=== PATIENT | female | born 1975 | race Caucasian/White ===

== ENCOUNTER → 2016-05-08 | Outpatient (CLI) | payer OTHER ==
--- NOTE | 2016-05-09 08:36 | KCIC ---
Bilateral digital screening mammograms with CAD: HISTORY Routine screening COMPARISON Baseline exam. FINDINGS Breast density category C. The skin and nipples show no abnormalities. No abnormal lymph nodes are seen in the axilla. The breast parenchyma shows heterogeneous density. There are small parenchymal densities seen bilaterally. Further evaluation with cone compression views and ultrasound is recommended. There are no suspicious calcifications. IMPRESSION Small parenchymal densities seen bilaterally. Recommend further evaluation with additional views and ultrasound. This study was interpreted with the benefit of Computerized Aided Detection (CAD). Mammography is not 100% sensitive in detecting breast cancer. Therefore, a self breast exam and a clinical breast exam are very important. A negative mammogram does not negate a clinically suspicious finding and should not result in a delay in biopsying a clinically suspicious abnormality. BI-RADS category 0: Incomplete. Additional imaging is recommended. This patient's information has been entered into a reminder system for the patient to be notified with the results of this examination and a target date for her next mammograms. Electronically signed by: Cheyanne Peralta MD (May 09, 2016 08:33:13)
== END | disposition home or self-care (01) ==
LOC: KCIC MAMMO 12:20
PROVIDERS: ATTEND Family Medicine
DX: Z12.31 Encounter for screening mammogram for malignant neoplasm of breast (principal)
CPT/HCPCS: 77052; G0202; 77067

== ENCOUNTER → 2016-05-15 | Outpatient (CLI) | payer OTHER ==
--- NOTE | 2016-05-16 13:57 | KCIC ---
DATE: 05/15/2016 EXAM: DIGITAL DIAGNOSTIC BILATERAL HISTORY: Possible abnormality seen on screening COMPARISON: Screening examination one week earlier This study was interpreted with the benefit of Computerized Aided Detection (CAD). FINDINGS: The breast parenchyma unchanged relative to the screening exam. Additional views of the breasts were obtained. Rolled cc views of the breast and ML views of both breasts were obtained. On the additional views no dominant mass is seen. The findings on screening probably reflects summation artifact. A screening ultrasound examination of the breasts was performed. A definite mass or abnormality on screening is not seen. IMPRESSION: Probable benign findings. Follow-up conventional mammography in 6 months advised of both breasts BI-RADS CATEGORY: 3 PROBABLE BENIGN FINDING(S-SHORT INTERVAL FOLLOW-UP SUGGESTED RECOMMENDED FOLLOW-UP: 6M 6 MONTH FOLLOW-UP PQRS compliance statement: Patient information was entered into a reminder system with a target due date November 02, 2016 for the next mammogram. Mammography is a sensitive method for finding small breast cancers, but it does not detect them all and is not a substitute for careful clinical examination. A negative mammogram does not negate a clinically suspicious finding and should not result in delay in biopsying a clinically suspicious abnormality. "Our facility is accredited by the [employer] Mammography [employer]." MTDD
== END | disposition home or self-care (01) ==
LOC: KCIC MAMMO 12:59
PROVIDERS: ATTEND Family Medicine
DX: R92.8 Other abnormal and inconclusive findings on diagnostic imaging of breast (principal)
CPT/HCPCS: 76641; G0204; 77051

== ENCOUNTER → 2017-03-06 | Outpatient (CLI) | payer OTHER ==
--- NOTE | 2017-03-06 12:39 | KCIC ---
DATE: March 06, 2017 EXAM: MAMMO BANDAR DIAG BILAT HISTORY: Follow-up of bilateral nodular densities. COMPARISON: May 15, 2016. This study was interpreted with the benefit of Computerized Aided Detection (CAD). 2-D digital mammographic views of both breasts were performed in the CC and MLO projections. 3-D digital tomosynthesis of both breasts were performed in the CC and MLO projections and reviewed on a computer workstation. FINDINGS: The breast parenchyma is scattered and mildly dense. Nodular breast parenchyma is stable. There are no dominant suspicious masses, suspicious microcalcifications or evidence of architectural distortion. IMPRESSION: No mammographic indicators for malignancy. BI-RADS CATEGORY: 2 BENIGN FINDING RECOMMENDED FOLLOW-UP: 12M 12 MONTH FOLLOW-UP PQRS compliance statement: Patient information was entered into a reminder system with a target due date March 07, 2018 for the next mammogram. Mammography is a sensitive method for finding small breast cancers, but it does not detect them all and is not a substitute for careful clinical examination. A negative mammogram does not negate a clinically suspicious finding and should not result in delay in biopsying a clinically suspicious abnormality. "Our facility is accredited by the [employer] Mammography [employer]." The patient's breast density may affect the ability of mammography to detect breast cancer. There are 4 categories of breast density, A, B, C and D. Breast density A means that most of the breast tissue is replaced with adipose tissue and therefore is not dense. Breast density B means that the breast tissue is mildly dense and scattered. Breast density C means that the breast tissue is heterogeneously dense. Breast density D means that the breast tissue is very dense. Breast densities especially C and D may decrease the sensitivity of mammography to detect breast cancer. Therefore, the patient may benefit from 3-D breast mammography (3D breast tomography) as a part of their screening mammogram. Insurance may or may not pay for this additional imaging. The patient's breast density based on today's mammogram is category B.
== END | disposition home or self-care (01) ==
LOC: KCIC MAMMO 10:44
PROVIDERS: ATTEND Family Medicine
DX: R92.8 Other abnormal and inconclusive findings on diagnostic imaging of breast (principal)
CPT/HCPCS: G0204; G0279; 77062; 77066

== ENCOUNTER → 2018-11-12 | Outpatient (CLI) | payer OTHER ==
--- NOTE | 2018-11-12 17:35 | KCIC ---
BILATERAL SCREENING MAMMOGRAM, 3-D History: Routine screening. Comparison: Bilateral mammogram May 08, 2016. Technique: MLO and CC digital tomosynthesis (3D) images obtained. Radiologist reviewed these images on dedicated workstation. Findings: Breast Tissue Density C : The breasts are heterogeneously dense, which may obscure small masses. Benign calcifications left breast redemonstrated. There are no dominant masses, suspicious microcalcifications, or architectural distortion. IMPRESSION: No mammographic evidence of malignancy. Recommend routine screening. BI-RADS category 2: Benign findings. The images were reviewed with computer-aided detection. Patient information is entered into reminder system with a target due date for the next screening mammogram. Mammography is the most sensitive method for finding small breast cancers, but it does not detect them all and is not a substitute for careful clinical examination. A negative mammogram does not negate a clinically suspicious finding and should not result in delay in biopsying a clinically suspicious abnormality. "Our facility is accredited by the [employer] Mammography [employer]." Electronically signed by: Matt Hoff MD (11/12/2018 5:32 PM) [facility]
== END | disposition home or self-care (01) ==
LOC: KCIC MAMMO 13:54
PROVIDERS: ATTEND Family Medicine
DX: Z12.31 Encounter for screening mammogram for malignant neoplasm of breast (principal); N64.89 Other specified disorders of breast
CPT/HCPCS: 77063; 77067

== ENCOUNTER 2019-02-07 10:43 | Emergency (ER) | payer OTHER ==
[~2019-02-07] VITALS: Ht 167.6 cm; Wt 61.2 kg
[~2019-02-07 10:43] MED LIST: ASPIRIN CHEWABLE 81 MG TABLET. PO ONE
--- NOTE | 2019-02-07 10:54 | PHYS DOC ---
Adult General Chief Complaint Chief Complaint: CHEST PAIN HPI HPI 44-year-old female presents to the emergency department with complaints of chest pain, irregular heart rate, palpitations, shortness of breath, nausea. Patient with no past medical history. LMP currently. Patient states they did go out last night for her birthday to a concert, she states she had 4 drinks which is not normal for her. Her last large amount of alcohol intake was approximately 10 years ago. Nothing makes her symptoms worse, nothing makes her symptoms better. Review of Systems Review of Systems Constitutional: Denies fever or chills [] Respiratory: Shortness of breath Cardiovascular: No additional information not addressed in HPI [] GI: Nausea with vomiting : Denies dysuria or hematuria [] Neurologic: Denies headache, focal weakness or sensory changes [] All other systems were reviewed and found to be within normal limits, except as documented in this note. Current Medications Current Medications Current Medications Medications (Trade) Dose Ordered Sig/Diego Start Time Stop Time Status Last Admin Dose Admin Aspirin (Children'S Aspirin) 324 mg 1X ONCE 02/07/19 10:30 02/07/19 11:08 DC 02/07/19 11:15 324 MG Heparin Sodium (Porcine) (Heparin Sodium) 1,550 unit PRN Q6HRS PRN 02/07/19 11:55 Heparin Sodium/ Dextrose 500 ml @ 0 mls/hr CONT PRN 02/07/19 12:00 Nitroglycerin (Nitrostat) 0.4 mg PRN Q5MIN PRN 02/07/19 11:30 02/08/19 11:29 Ondansetron HCl (Zofran) 4 mg 1X ONCE 02/07/19 11:30 02/07/19 11:31 DC 02/07/19 11:15 4 MG Sodium Chloride 1,000 ml @ 1,000 mls/hr 1X ONCE 02/07/19 11:30 02/07/19 12:29 02/07/19 11:15 1,000 MLS/HR Allergies Allergies Allergies Coded Allergies Type Severity Reaction Last Updated Verified No Known Drug Allergies 02/07/19 No Physical Exam Physical Exam Constitutional: Well developed, well nourished, mild distress, nontoxic appearing HENT: Normocephalic, atraumatic, bilateral external ears normal, oropharynx moist, no oral exudates, nose normal. [] Eyes: PERRLA, EOMI, conjunctiva normal, no discharge. [] Cardiovascular: Irregular irregular rhythm Lungs & Thorax: Bilateral breath sounds clear to auscultation [] Abdomen: Bowel sounds normal, soft, no tenderness, no masses, no pulsatile masses. [] Skin: Warm, dry, no erythema, no rash. [] Extremities: No tenderness, no edema. [] Neurologic: Alert and oriented X 3, no focal deficits noted. [] Psychologic: Affect normal, judgement normal, mood normal. [] Current Patient Data Vital Signs Vital Signs Date Time Temp Pulse Resp B/P (MAP) Pulse Ox O2 Delivery O2 Flow Rate FiO2 02/07/19 10:49 97.4 108 16 154/102 (119) 100 Room Air 97.4 Lab Values Laboratory Tests Test 02/07/19 10:55 White Blood Count 8.6 x10^3/uL (4.0-11.0) Red Blood Count 5.06 x10^6/uL (3.50-5.40) Hemoglobin 15.2 g/dL (12.0-15.5) Hematocrit 44.6 % (36.0-47.0) Mean Corpuscular Volume 88 fL (79-100) Mean Corpuscular Hemoglobin 30 pg (25-35) Mean Corpuscular Hemoglobin Concent 34 g/dL (31-37) Red Cell Distribution Width 13.7 % (11.5-14.5) Platelet Count 279 x10^3/uL (140-400) Neutrophils (%) (Auto) 80 % (31-73) H Lymphocytes (%) (Auto) 14 % (24-48) L Monocytes (%) (Auto) 4 % (0-9) Eosinophils (%) (Auto) 1 % (0-3) Basophils (%) (Auto) 1 % (0-3) Neutrophils # (Auto) 6.8 x10^3/uL (1.8-7.7) Lymphocytes # (Auto) 1.2 x10^3/uL (1.0-4.8) Monocytes # (Auto) 0.4 x10^3/uL (0.0-1.1) Eosinophils # (Auto) 0.1 x10^3/uL (0.0-0.7) Basophils # (Auto) 0.0 x10^3/uL (0.0-0.2) D-Dimer (Dixie) < 0.27 ug/mlFEU Sodium Level 145 mmol/L (136-145) Potassium Level 3.5 mmol/L (3.5-5.1) Chloride Level 105 mmol/L (98-107) Carbon Dioxide Level 24 mmol/L (21-32) Anion Gap 16 (6-14) H Blood Urea Nitrogen 11 mg/dL (7-20) Creatinine 0.7 mg/dL (0.6-1.0) Estimated GFR (Cockcroft-Gault) 90.5 BUN/Creatinine Ratio 16 (6-20) Glucose Level 108 mg/dL (70-99) H Calcium Level 9.6 mg/dL (8.5-10.1) Total Bilirubin 0.5 mg/dL (0.2-1.0) Aspartate Amino Transferase (AST) 21 U/L (15-37) Alanine Aminotransferase (ALT) 22 U/L (14-59) Alkaline Phosphatase 55 U/L (46-116) Troponin I Quantitative < 0.017 ng/mL (0.000-0.055) IC-Ocd-A-Type Natriuretic Peptide 55 pg/mL (0-124) Total Protein 8.6 g/dL (6.4-8.2) H Albumin 4.9 g/dL (3.4-5.0) Albumin/Globulin Ratio 1.3 (1.0-1.7) Thyroid Stimulating Hormone (TSH) 0.936 uIU/mL (0.358-3.74) Laboratory Tests 02/07/19 10:55 Laboratory Tests 02/07/19 10:55 EKG EKG EKG reviewed, irregularly irregular rhythm, heart rate 114.[] EKG 1213 reveals normal sinus rhythm Interpretation Time: Interpretation time 1053 Radiology/Procedures Radiology/Procedures [facility] [address] [place], [place] [id number] IMAGING REPORT Signed PATIENT: DARLENE FERNANDEZ ACCOUNT: [id number] : 1975 LOCATION: ER AGE: 44 SEX: F EXAM STATUS: REG ER ORD. PHYSICIAN: RUSSELL OROZCO MD REASON: chest pain PROCEDURE: PORTABLE CHEST 1V PORTABLE CHEST 1V INDICATION: Chest pain. COMPARISON STUDY: None. FINDINGS: Lungs: Normal lung volume. No pulmonary mass or consolidation. The tracheobronchial tree and hilar structures are normal. Pleura: No pleural effusion or pneumothorax. Heart and Mediastinum: The cardiomediastinal silhouette is normal. The great vessels of the thorax are normal. IMPRESSION: No acute cardiopulmonary process. Electronically signed by: Tato Rivers MD (02/07/2019 11:47 AM) [facility] DICTATED and SIGNED BY: TATO RIVERS MD DATE: 02/07/19 1147 [] Course & Med Decision Making Course & Med Decision Making Pertinent Labs and Imaging studies reviewed. (See chart for details) []44-year-old female presents to the emergency department with complaints of chest pain, irregular heart rate, palpitations, shortness of breath, nausea. Patient with no past medical history. LMP currently. Patient states they did go out last night for her birthday to a concert, she states she had 4 drinks which is not normal for her. Her last large amount of alcohol intake was approximately 10 years ago. Nothing makes her symptoms worse, nothing makes her symptoms better. Labs reviewed, TSH within normal limits, troponin normal, EKG still reveals irregular irregular rhythm, intermittent atrial flutter. CHADsVasc2 score 1 (low risk) - discussed initiating heparin drip in the ER. Heparin drip with bolus initiated in ER however during this time, patient converted to NSR Discussed with Dr. Reyes - will follow up as outpatient Discussed with patient, call for appointment time on Saturday Discussed return precautions Dragon Disclaimer Dragon Disclaimer This electronic medical record was generated, in whole or in part, using a voice recognition dictation system. Departure Departure Impression: Primary Impression: Chest pain Additional Impression: Arrhythmia Referrals: KARLOS AGUILAR MD (PCP) DENVER REYES MD Patient Instructions: Cardiac Arrhythmia Additional Instructions: Recommend follow up with PCP 3 - 5 days Return to the ER with worsening symptoms, intractable pain, fever, altered mental status Tylenol/Motrin as needed for pain Converted to normal sinus rhythm in ER TSH, cardiac enzymes negative Call cardiology office on Saturday for follow up appointment Problem Qualifiers Primary Impression: Chest pain Chest pain type: unspecified Qualified Codes: R07.9 - Chest pain, unspecified RUSSELL OROZCO MD Feb 07, 2019 10:54
[2019-02-07 11:13] LABS: BASO % 1 % (0-3); EOS # 0.1 x10^3/uL (0.0-0.7); EOS % 1 % (0-3); HEMATOCRIT 44.6 % (36.0-47.0); HEMOGLOBIN 15.2 g/dL (12.0-15.5); LYMPH # 1.2 x10^3/uL (1.0-4.8); LYMPH % 14 % (24-48); MEAN CORPUSCULAR HEMOGLOBIN 30 pg (25-35); MEAN CORPUSCULAR HGB CONC 34 g/dL (31-37); MEAN CORPUSCULAR VOLUME 88 fL (79-100); MONO # 0.4 x10^3/uL (0.0-1.1); MONO % 4 % (0-9); NEUT # 6.8 x10^3/uL (1.8-7.7); NEUT % 80 % (31-73); PLATELET COUNT 279 x10^3/uL (140-400); RED BLOOD COUNT 5.06 x10^6/uL (3.50-5.40); RED CELL DISTRIBUTION WIDTH 13.7 % (11.5-14.5); WHITE BLOOD COUNT 8.6 x10^3/uL (4.0-11.0)
[2019-02-07 11:24] LABS: CALCIUM 9.6 mg/dL (8.5-10.1); CREATININE 0.7 mg/dL (0.6-1.0); GFR 90.5; POTASSIUM 3.5 mmol/L (3.5-5.1)
[2019-02-07 11:30] LABS: ALBUMIN 4.9 g/dL (3.4-5.0); ALBUMIN/GLOBULIN RATIO 1.3 (1.0-1.7); TOTAL BILIRUBIN 0.5 mg/dL (0.2-1.0); TOTAL PROTEIN 8.6 g/dL (6.4-8.2)
[2019-02-07] MEDS ORDERED: IV NORMAL SALINE 1000ML BAG 1,000 ML IV ONE (11:30)
[2019-02-07] MEDS ORDERED: NITROGLYCERIN SUBLINGUAL 0.4 MG BOTTLE OF 25. SL PRN (11:30)
[2019-02-07] MEDS ORDERED: ONDANSETRON PF 4 MG/2 ML VIAL. IV ONE (11:30)
--- NOTE | 2019-02-07 11:50 | RAD ---
PORTABLE CHEST 1V INDICATION: Chest pain. COMPARISON STUDY: None. FINDINGS: Lungs: Normal lung volume. No pulmonary mass or consolidation. The tracheobronchial tree and hilar structures are normal. Pleura: No pleural effusion or pneumothorax. Heart and Mediastinum: The cardiomediastinal silhouette is normal. The great vessels of the thorax are normal. IMPRESSION: No acute cardiopulmonary process. Electronically signed by: Deepak Rivers MD (02/07/2019 11:47 AM) [facility]
[2019-02-07] MEDS ORDERED: HEPARIN for IV BOLUS 10,000 UNIT/10 ML VIAL. IV PRN (11:55)
[2019-02-07] MEDS ORDERED: HEPARIN 25,000UTS/500ML PREMIX 500 ML IV PRN (12:00)
[2019-02-07] MEDS ORDERED: HEPARIN for IV BOLUS 10,000 UNIT/10 ML VIAL. IV ONE (12:00)
--- NOTE | 2019-02-07 12:23 | PDOC1 ---
History and Physical Date of Admission Date of Admission DATE: 02/07/19 TIME: 12:23 Identification/Chief Complaint Chief Complaint seen in er with new onset a-fib after drinking last night 4 drinks Past Medical History Cardiovascular: No pertinent hx Heme/Onc: No pertinent hx Hepatobiliary: No pertinent hx Psych: No pertinent hx Infectious disease: No pertinent hx Renal/: No pertinent hx Family History Family History: Other Social History Smoke: No ALCOHOL: social Drugs: None Current Problem List Problem List Problems Medical Problems: (1) Chest pain Status: Acute Current Medications Current Medications Current Medications Aspirin (Children'S Aspirin) 324 mg 1X ONCE PO Last administered on 02/07/19at 11:15; Start 02/07/19 at 10:30; Stop 02/07/19 at 11:08; Status DC Nitroglycerin (Nitrostat) 0.4 mg PRN Q5MIN PRN SL CP RATING > 1/10; Start 02/07/19 at 11:30; Stop 02/08/19 at 11:29 Ondansetron HCl (Zofran) 4 mg 1X ONCE IV Last administered on 02/07/19at 11:15; Start 02/07/19 at 11:30; Stop 02/07/19 at 11:31; Status DC Sodium Chloride 1,000 ml @ 1,000 mls/hr 1X ONCE IV Last administered on 02/07/19at 11:15; Start 02/07/19 at 11:30; Stop 02/07/19 at 12:29 Heparin Sodium (Porcine) (Heparin Sodium) 3,650 unit 1X ONCE IV ; Start 02/07/19 at 12:00; Stop 02/07/19 at 12:01; Status DC Heparin Sodium/ Dextrose 500 ml @ 0 mls/hr CONT PRN IV PER PROTOCOL; Start 02/07/19 at 12:00 Heparin Sodium (Porcine) (Heparin Sodium) 1,550 unit PRN Q6HRS PRN IV FOR UFH LEVEL LESS THAN 0.2; Start 02/07/19 at 11:55 Allergies Allergies: Coded Allergies: No Known Drug Allergies (Unverified , 02/07/19) ROS General: No: Chills, Night Sweats, Fatigue, Malaise, Appetite, Other PSYCHOLOGICAL ROS: No: Anxiety, Behavioral Disorder, Concentration difficultie, Decreased libido, Depression, Disorientation, Hallucinations, Hostility, Irritablity, Memory difficulties, Mood Swings, Obsessive thoughts, Physical abuse, Sexual abuse, Sleep disturbances, Suicidal ideation, Other Eyes: No Blurry vision, No Decreased vision, No Double vision, No Dry eyes, No Excessive tearing, No Eye Pain, No Itchy Eyes, No Loss of vision, No Photophobia, No Scotomata, No Uses contacts, No Uses glasses, No Other HEENT: No: Heacaches, Visual Changes, Hearing change, Nasal congestion, Nasal discharge, Oral lesions, Sinus pain, Sore Throat, Epistaxis, Sneezing, Snoring, Tinnitus, Vertigo, Vocal changes, Other ALLERGY AND IMMUNOLOGY: No: Hives, Insect Bite Sensitivity, Itchy/Watery Eyes, Nasal Congestion, Post Nasal Drip, Seasonal Allergies, Other Hematological and Lymphatic: No: Bleeding Problems, Blood Clots, Blood Transfusions, Brusing, Night Sweats, Pallor, Swollen Lymph Nodes, Other ENDOCRINE: No: Breast Changes, Galactorrhea, Hair Pattern Changes, Hot Flashes, Malaise/lethargy, Mood Swings, Palpitations, Polydipsia/polyuria, Skin Changes, Temperature Intolerance, Unexpected Weight Changes, Other Respiratory: No: Cough, Hemoptysis, Orthopnea, Pleuritic Pain, Shortness of lora ath, SOB with excertion, Sputum Changes, Stridor, Tachypnea, Wheezing, Other Cardiovascular: No Chest Pain, No Palpitations, No Orthopnea, No Paroxysmal Noc. Dyspnea, No Edema, No Lt Headedness, No Other Gastrointestinal: No Nausea, No Vomiting, No Abdominal Pain, No Diarrhea, No Constipation, No Melena, No Hematochezia, No Other Musculoskeletal: No Gait Disturbance, No Joint Pain, No Joint Stiffness, No Joint Swelling, No Muscle Pain, No Muscular Weakness, No Pain In:, No Swelling In:, No Other Neurological: No Behavorial Changes, No Bowel/Bladder ControlChng, No Confusion, No Dizziness, No Gait Disturbance, No Headaches, No Impaired Coord/balance, No Memory Loss, No Numbness/Tingling, No Seizures, No Speech Problems, No Tremors, No Visual Changes, No Weakness, No Other Physical Exam General: Alert, Oriented X3, Cooperative, No acute distress HEENT: PERRLA Lungs: Clear to auscultation, Normal air movement Heart: S1S2, RRR, no thrills, no rubs Cardiovascular: S1 Breasts: Not examined Abdomen: Normal bowel sounds, Soft Rectal Exam: not examined PELVIC: Examination not indicated Extremities: No clubbing, No cyanosis, No edema, Normal pulses Neuro: Normal speech, Cranial nerves 3-12 NL Psych/Mental Status: Mental status NL, Mood NL Vitals Vitals Vital Signs Date Time Temp Pulse Resp B/P (MAP) Pulse Ox O2 Delivery O2 Flow Rate FiO2 02/07/19 10:49 97.4 108 16 154/102 (119) 100 Room Air 97.4 Labs Labs Laboratory Tests Test 02/07/19 10:55 White Blood Count 8.6 x10^3/uL (4.0-11.0) Red Blood Count 5.06 x10^6/uL (3.50-5.40) Hemoglobin 15.2 g/dL (12.0-15.5) Hematocrit 44.6 % (36.0-47.0) Mean Corpuscular Volume 88 fL (79-100) Mean Corpuscular Hemoglobin 30 pg (25-35) Mean Corpuscular Hemoglobin Concent 34 g/dL (31-37) Red Cell Distribution Width 13.7 % (11.5-14.5) Platelet Count 279 x10^3/uL (140-400) Neutrophils (%) (Auto) 80 % (31-73) Lymphocytes (%) (Auto) 14 % (24-48) Monocytes (%) (Auto) 4 % (0-9) Eosinophils (%) (Auto) 1 % (0-3) Basophils (%) (Auto) 1 % (0-3) Neutrophils # (Auto) 6.8 x10^3/uL (1.8-7.7) Lymphocytes # (Auto) 1.2 x10^3/uL (1.0-4.8) Monocytes # (Auto) 0.4 x10^3/uL (0.0-1.1) Eosinophils # (Auto) 0.1 x10^3/uL (0.0-0.7) Basophils # (Auto) 0.0 x10^3/uL (0.0-0.2) D-Dimer (Dixie) < 0.27 ug/mlFEU Sodium Level 145 mmol/L (136-145) Potassium Level 3.5 mmol/L (3.5-5.1) Chloride Level 105 mmol/L (98-107) Carbon Dioxide Level 24 mmol/L (21-32) Anion Gap 16 (6-14) Blood Urea Nitrogen 11 mg/dL (7-20) Creatinine 0.7 mg/dL (0.6-1.0) Estimated GFR (Cockcroft-Gault) 90.5 BUN/Creatinine Ratio 16 (6-20) Glucose Level 108 mg/dL (70-99) Calcium Level 9.6 mg/dL (8.5-10.1) Total Bilirubin 0.5 mg/dL (0.2-1.0) Aspartate Amino Transf (AST/SGOT) 21 U/L (15-37) Alanine Aminotransferase (ALT/SGPT) 22 U/L (14-59) Alkaline Phosphatase 55 U/L (46-116) Troponin I Quantitative < 0.017 ng/mL (0.000-0.055) RK-Qwn-P-Type Natriuretic Peptide 55 pg/mL (0-124) Total Protein 8.6 g/dL (6.4-8.2) Albumin 4.9 g/dL (3.4-5.0) Albumin/Globulin Ratio 1.3 (1.0-1.7) Thyroid Stimulating Hormone (TSH) 0.936 uIU/mL (0.358-3.74) Laboratory Tests Test 02/07/19 10:55 White Blood Count 8.6 x10^3/uL (4.0-11.0) Red Blood Count 5.06 x10^6/uL (3.50-5.40) Hemoglobin 15.2 g/dL (12.0-15.5) Hematocrit 44.6 % (36.0-47.0) Mean Corpuscular Volume 88 fL (79-100) Mean Corpuscular Hemoglobin 30 pg (25-35) Mean Corpuscular Hemoglobin Concent 34 g/dL (31-37) Red Cell Distribution Width 13.7 % (11.5-14.5) Platelet Count 279 x10^3/uL (140-400) Neutrophils (%) (Auto) 80 % (31-73) Lymphocytes (%) (Auto) 14 % (24-48) Monocytes (%) (Auto) 4 % (0-9) Eosinophils (%) (Auto) 1 % (0-3) Basophils (%) (Auto) 1 % (0-3) Neutrophils # (Auto) 6.8 x10^3/uL (1.8-7.7) Lymphocytes # (Auto) 1.2 x10^3/uL (1.0-4.8) Monocytes # (Auto) 0.4 x10^3/uL (0.0-1.1) Eosinophils # (Auto) 0.1 x10^3/uL (0.0-0.7) Basophils # (Auto) 0.0 x10^3/uL (0.0-0.2) D-Dimer (Dixie) < 0.27 ug/mlFEU Sodium Level 145 mmol/L (136-145) Potassium Level 3.5 mmol/L (3.5-5.1) Chloride Level 105 mmol/L (98-107) Carbon Dioxide Level 24 mmol/L (21-32) Anion Gap 16 (6-14) Blood Urea Nitrogen 11 mg/dL (7-20) Creatinine 0.7 mg/dL (0.6-1.0) Estimated GFR (Cockcroft-Gault) 90.5 BUN/Creatinine Ratio 16 (6-20) Glucose Level 108 mg/dL (70-99) Calcium Level 9.6 mg/dL (8.5-10.1) Total Bilirubin 0.5 mg/dL (0.2-1.0) Aspartate Amino Transf (AST/SGOT) 21 U/L (15-37) Alanine Aminotransferase (ALT/SGPT) 22 U/L (14-59) Alkaline Phosphatase 55 U/L (46-116) Troponin I Quantitative < 0.017 ng/mL (0.000-0.055) PI-Tms-E-Type Natriuretic Peptide 55 pg/mL (0-124) Total Protein 8.6 g/dL (6.4-8.2) Albumin 4.9 g/dL (3.4-5.0) Albumin/Globulin Ratio 1.3 (1.0-1.7) Thyroid Stimulating Hormone (TSH) 0.936 uIU/mL (0.358-3.74) VTE Prophylaxis Ordered VTE Prophylaxis Devices: No VTE Pharmacological Prophylaxi: No Assessment/Plan Assessment/Plan impression 1 a-fib, spontaneous conversion in ER 2. Alcohol intake last PM PLAN ECHO T4 SEE CARDIOLOGY SATURDAY NO ETOH AVOID PSEUDOEPHEDRINE ATNK RIVAS MD Feb 07, 2019 12:23
[2019-02-07 12:40] VITALS: BP 142/84
--- NOTE | 2019-02-08 11:49 | EKG ---
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
--- NOTE | 2019-02-08 11:49 | EKG ---
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
== END 2019-02-07 12:46 | disposition home or self-care (01) ==
LOC: ER 10:43
DX: R07.89 Other chest pain (principal); I49.9 Cardiac arrhythmia, unspecified; R11.2 Nausea with vomiting, unspecified
CPT/HCPCS: 36415; 71045; 80053; 83880; 84443; 84484; 85025; 85379; 93005; 96361; 96374; 99285; J2405; J7030

== ENCOUNTER → 2019-04-08 | Outpatient (CLI) | payer OTHER ==
--- NOTE | 2019-04-08 10:50 | CARD ---
MR#: [id number] Date of Study: 04/08/2019 Ordering Physician: TREVER ANAYA, Referring Physician: TREVER ANAYA, Tech: Mrey Herrera [place] APPROVED REPORT EXAM: Two-dimensional and M-mode echocardiogram with Doppler and color Doppler. Other Information Quality : Good INDICATION Atrial Fibrillation 2D DIMENSIONS RVDd2.9 (2.9-3.5cm)Left Atrium(2D)3.1 (1.6-4.0cm) IVSd0.8 (0.7-1.1cm)Aortic Root(2D)2.9 (2.0-3.7cm) LVDd4.6 (3.9-5.9cm)LVOT Diameter2.0 (1.8-2.4cm) PWd0.8 (0.7-1.1cm)LVDs3.1 (2.5-4.0cm) FS (%) 31.8 %SV57.1 ml LVEF(%)59.9 (>50%) Aortic Valve AoV Peak Francis.101.0cm/sAoV VTI17.9cm AO Peak GR.4.1mmHgLVOT Peak Francis.84.2cm/s AO Mean GR.2mmHgAVA (VMAX)2.67cm2 CATHLEEN (VTI)2.90cm2 Mitral Valve MV E Qmizuhhz70.7cm/sMV DECEL INIC469mx MV A Vmzvpzbv97.1cm/sE/A Ratio1.2 Tricuspid Valve TR P. Snmktomb909bf/sRAP UJEXPSBL6toHm TR Peak Gr.09qhLoHARB70suTm Pulmonary Vein S1 Knifxlck46.8cm/sD2 Rxprfncs43.2cm/s LEFT VENTRICLE The left ventricle is normal size. There is normal left ventricular wall thickness. The left ventricu lar systolic function is normal and the ejection fraction is within normal range. The Ejection Fracti on is 55-60%. There is normal LV segmental wall motion. The left ventricular diastolic function and f illing is normal for age. RIGHT VENTRICLE The right ventricle is normal size. The right ventricular systolic function is normal. ATRIA The left atrium size is normal. The right atrium size is normal. The interatrial septum is intact wit h no evidence for an atrial septal defect or patent foramen ovale as noted on 2-D or Doppler imaging. AORTIC VALVE The aortic valve is normal in structure and function. Doppler and Color Flow revealed no significant aortic regurgitation. There is no significant aortic valvular stenosis. MITRAL VALVE The mitral valve is normal in structure and function. There is no evidence of mitral valve prolapse. There is no mitral valve stenosis. Doppler and Color-flow revealed trace to mild mitral regurgitation . TRICUSPID VALVE The tricuspid valve is normal in structure and function. Doppler and Color Flow revealed physiologica l tricuspid regurgitation. The PA pressure was estimated at 25 mmHg. There is no tricuspid valve sten osis. PULMONIC VALVE The pulmonary valve is normal in structure and function. Doppler and Color Flow revealed trace pulmon ic valvular regurgitation. There is no pulmonic valvular stenosis. GREAT VESSELS The aortic root is normal in size. The ascending aorta is normal in size. The IVC is normal in size a nd collapses >50% with inspiration. PERICARDIAL EFFUSION There is no evidence of significant pericardial effusion. Critical Notification Critical Value: No <Conclusion> The left ventricular systolic function is normal and the ejection fraction is within normal range. Th e Ejection Fraction is 55-60%. There is normal LV segmental wall motion. Signed by : Jeff Reyes, Electronically Approved : 04/08/2019 10:49:45
== END | disposition home or self-care (01) ==
LOC: ECHO 09:50
PROVIDERS: ATTEND Internal Medicine Cardiovascular Disease
DX: I08.1 Rheumatic disorders of both mitral and tricuspid valves (principal); I48.91 Unspecified atrial fibrillation
CPT/HCPCS: 93306

== ENCOUNTER → 2019-11-11 | Outpatient (CLI) | payer OTHER ==
--- NOTE | 2019-11-12 09:54 | KCIC ---
Bilateral digital screening mammograms and tomosynthesis Reason for examination: Routine screening. Comparison is made to previous study dated November 12, 2018 and priors Routine CC and MLO digital views obtained. Interpretation was made with the benefit of CAD. The skin and nipples show no abnormalities. No abnormal lymph nodes are seen. The breast parenchyma is scattered fibroglandular elements. (Breast density: Category B.) There are no suspicious masses, suspicious calcifications or architectural distortions. Benign calcifications. Impression: Negative mammogram. Recommend routine screening. BI-RADS Category 2: Benign. "Our facility is accredited by the [employer] Mammography Program." This patient's information has been entered into a reminder system for the patient to be notified with the results of her examination and a target date for the next mammogram. Electronically signed by: Jonathan Dorantes MD (11/12/2019 9:52 AM) [id number]
== END | disposition home or self-care (01) ==
LOC: KCIC MAMMO 14:45
PROVIDERS: ATTEND Family Medicine
DX: Z12.31 Encounter for screening mammogram for malignant neoplasm of breast (principal); N64.89 Other specified disorders of breast
CPT/HCPCS: 77063; 77067